=== PATIENT | female | born 1960 ===

== ENCOUNTER 2019-01-19 12:01 | Day surgery (SDC) | payer BC ==
[~2019-01-19 12:01] MED LIST: PROPOFOL 500 MG/50 ML EMU IV ONE
[2019-01-19] MEDS ORDERED: KETOROLAC TROMETHAMINE 30 MG/ML SOL ONE (13:42)
[2019-01-19 13:46] VITALS: RESP 16
[2019-01-19 13:58] VITALS: PULSE 74
[2019-01-19 14:04] VITALS: BP 130/80; TEMP 97.9; O2SAT 97
== END 2019-01-19 14:30 | disposition home or self-care (01) ==
LOC: SURG 12:01
PROVIDERS: ATTEND Surgery
DX: R93.3 Abnormal findings on diagnostic imaging of other parts of digestive tract (principal); K57.32 Diverticulitis of large intestine without perforation or abscess without bleeding; K56.699 Other intestinal obstruction unspecified as to partial versus complete obstruction; K63.5 Polyp of colon; D12.8 Benign neoplasm of rectum
CPT/HCPCS: 99001; J1885; J2001; J2704

== ENCOUNTER 2019-02-18 13:35 | Emergency (ER) | payer BC ==
[2019-02-18] MEDS ORDERED: SOLUMEDROL 125 MG/2 ML 125 MG/2 ML PDS IV ONE (14:44)
[2019-02-18] MEDS ORDERED: DIPHENHYDRAMINE 50 MG/ML SOL IV ONE (14:44)
[2019-02-18] MEDS ORDERED: SOLUMEDROL 125 MG/2 ML 125 MG/2 ML PDS ONE (14:46)
[2019-02-18] MEDS ORDERED: DIPHENHYDRAMINE 50 MG/ML SOL ONE (14:46)
[2019-02-18] MEDS ORDERED: SODIUM CHLORIDE 0.9% FLUSH 10 ML SOL IV PRN (14:55)
[2019-02-18 15:21] VITALS: RESP 18
[2019-02-18] MEDS ORDERED: PIPERACILLIN/TAZOBACT 3.375 GM 3.375 GM in SODIUM CHLORIDE 0.9% 100 ML 100 ML IV ONE (16:17)
[2019-02-18] MEDS ORDERED: PIPERACILLIN/TAZOBACT 3.375 GM PDS IV ONE (16:35)
[2019-02-18] MEDS ORDERED: SODIUM CHLORIDE 0.9% 1000ML 1,000 ML IV ONE (17:44)
[2019-02-18 17:51] VITALS: TEMP 97.8
[2019-02-18 17:52] VITALS: BP 104/68; PULSE 85; O2SAT 93
== END 2019-02-18 18:09 | disposition short-term general hospital (02) ==
LOC: ED 13:35
DX: T81.49XS Infection following a procedure, other surgical site, sequela (principal)
CPT/HCPCS: 74177; 87070; 87077; 87186; 96365; 96374; 96375; 99070; 99283; 99285; J1200; J2543; J2930; Q9967

== ENCOUNTER 2019-03-01 00:44 | Emergency (ER) | payer BC ==
[2019-03-01 00:51] VITALS: TEMP 96.8
[2019-03-01 01:24] LABS: APPEARANCE,URINE Slightly Cloudy; BILIRUBIN,URINE 1+ (NEGATIVE); COLOR,URINE Dark yellow; GLUCOSE, URINE (UA) NEGATIVE (NEGATIVE); KETONES,URINE TRACE (NEGATIVE); LEUKOCYTE ESTERASE ,URINE TRACE (NEGATIVE); NITRATE,URINE NEGATIVE (NEGATIVE); OCCULT BLOOD,URINE 2+ (NEG-TRACE); UROBILINOGEN,URINE 0.2 (0.2-1.0 EU)
[2019-03-01 01:37] LABS: ICTOTEST,URINE NEGATIVE (NEGATIVE)
[2019-03-01 01:38] LABS: BACTERIA 1+ (< 1+); CRYSTALS NEGATIVE (0-3 AVE/HPF); RBC,URINE 30-40 (0-3AV/HPF)
[2019-03-01] MEDS ORDERED: CEFTRIAXONE 1 GM PDS 1 GM in SODIUM CHLORIDE 0.9% 50 ML 50 ML IV ONE (01:46)
[2019-03-01] MEDS ORDERED: HYDROMORPHONE HCL 2 MG/ML SOL IV PRN (01:46)
[2019-03-01] MEDS ORDERED: KETOROLAC TROMETHAMINE 30 MG/ML SOL IV ONE (01:46)
[2019-03-01] MEDS ORDERED: SODIUM CHLORIDE 0.9% 1000ML 1,000 ML IV ONE (01:46)
[2019-03-01] MEDS ORDERED: CEFTRIAXONE 1 GM PDS ONE (01:55)
[2019-03-01] MEDS ORDERED: HYDROMORPHONE 1 MG/ML SYRINGE ONE (01:55)
[2019-03-01] MEDS ORDERED: KETOROLAC TROMETHAMINE 30 MG/ML SOL ONE (01:55)
[2019-03-01] MEDS ORDERED: HYDROMORPHONE 1 MG/ML SYRINGE IV ONE (01:58)
[2019-03-01 05:18] VITALS: BP 103/78; PULSE 70; RESP 14; O2SAT 97
== END 2019-03-01 04:30 | disposition home or self-care (01) ==
LOC: ED 00:44
DX: N30.01 Acute cystitis with hematuria (principal)
CPT/HCPCS: 81001; 87088; 96365; 96366; 96374; 96375; 99070; 99282; 99285; J0696; J1885; J1170